=== PATIENT | female | born 1990 | race American Indian/Alaskan Native ===

== ENCOUNTER 2019-08-31 11:37 | Inpatient (IN) | payer MEDICAID ==
--- NOTE | 2019-08-31 12:22 | History and Physical Report ---
History of Present Illness Date of examination: 08/31/19 Chief complaint: Labor History of present illness: Pt is a 29yo BF EDC 09/01/19; EGA 39 6/7 weeks presents to L&D complaining of contractions. She has a previous C Section and is scheduled for a Repeat C Section with BTL tomorrow, but we will proceed today. She received care at [facility] since 13 weeks and co-managed by [facility] for uterine fibroids and sickle cell trait. records are available and GBS is Negative. Past History Past Medical History: no pertinent history Past Surgical History: section Social history: no significant social history, - Obstetrical History Expected Date of Delivery: 09/01/19 Actual Gestation: 39 Week(s) 6 Day(s) : 3 Medications and Allergies Allergies Allergy/AdvReac Type Severity Reaction Status Date / Time No Known Allergies Allergy Verified 06/08/15 10:23 Home Medications Medication Instructions Recorded Confirmed Last Taken Type Multivitamin Tablet 1 tab PO DAILY 08/31/19 08/31/19 08/30/19 10:00 History Review of Systems All systems: negative - Vital Signs Vital signs: Vital Signs Temp Pulse Resp BP 98.2 F 90 16 111/75 08/31/19 11:55 08/31/19 11:55 08/31/19 11:55 08/31/19 11:55 Temp Pulse Resp BP Pulse Ox 98.2 F 90 16 111/75 08/31/19 11:55 08/31/19 11:57 08/31/19 11:55 08/31/19 11:57 - Physical Exam Breasts: Positive: deferred Cardiovascular: Regular rate Lungs: Positive: Clear to auscultation Abdomen: Positive: normal appearance Genitourinary (Female): Positive: normal external genitalia Vagina: Positive: normal moisture Uterus: Positive: enlarged Extremities: Positive: normal - Obstetrical FHR: category 1 Uterine Contraction Monitor Mode: External Uterine Contraction Pattern: Regular Uterine Tone Measurement Phase: Contraction Uterine Contraction Intensity: Mild Results Result Diagrams: 08/31/19 12:00 All other labs normal. Assessment and Plan - Patient Problems (1) 39 weeks gestation of Onset Date: 08/31/19 Current Visit: Yes Status: Acute Plan to address problem: A: IUP @ 39 6/7 weeks in early labor Previous C Section Desire sterilization P: Admit to L&D for a Repeat C Section with BTL (2) Previous section complicating Onset Date: 08/31/19 Current Visit: Yes Status: Acute (3) Sterilization Onset Date: 08/31/19 Current Visit: Yes Status: Acute
[2019-08-31 12:31] LABS: Basophils % (Auto) 0.5 % (0.0-1.8); Eosinophils % (Auto) 0.2 % (0.0-4.3); Hematocrit 36.2 % (30.3-42.9); Lymphocytes # (Auto) 1.8 K/mm3 (1.2-5.4); Lymphocytes % (Auto) 19.8 % (13.4-35.0); Mean Corpuscular HGB Conc 33 % (30-34); Mean Corpuscular Volume 76 fl (79-97); Monocytes # (Auto) 0.8 K/mm3 (0.0-0.8); Monocytes % (Auto) 8.8 % (0.0-7.3); Platelet Count 273 K/mm3 (140-440); Red Blood Count 4.77 M/mm3 (3.65-5.03)
--- NOTE | 2019-08-31 12:42 | Anesthesia Consultation ---
Anesthesia Consult and Med Hx Date of service: 08/31/19 - Airway Anesthetic Teeth Evaluation: Good ROM Head & Neck: Adequate Mental/Hyoid Distance: Adequate Mallampati Class: Class II Intubation Access Assessment: Probably Good - Pulmonary Exam CTA: Yes - Cardiac Exam Cardiac Exam: RRR - Pre-Operative Health Status ASA Pre-Surgery Classification: ASA2 Proposed Anesthetic Plan: Spinal - Pre-Anesthesia Comment Pre-Anesthesia Comments: PSH: UHR - Pulmonary Hx Smoking: No Hx Asthma: No Hx Respiratory Symptoms: No SOB: No COPD: No Home Oxygen Therapy: No Hx Pneumonia: No Hx Sleep Apnea: No - Cardiovascular System Hx Hypertension: No Hx Coronary Artery Disease: No Hx Heart Attack/AMI: No Hx Angina: No Hx Percutaneous Transluminal Coronary Angioplasty (PTCA): No Hx Cardia Arrhythmia: No Hx Pacemaker: No Hx Internal Defibrillator: No Hx Valvular Heart Disease: No Hx Heart Murmur: No Hx Peripheral Vascular Disease: No - Central Nervous System Hx Neuromuscular Disorder: No Hx Seizures: No CVA: No Hx Back Pain: No Hx Psychiatric Problems: No - Gastrointestinal Hx Ulcer: No Hx Gastroesophageal Reflux Disease: No - Endocrine Hx Renal Disease: No Hx End Stage Renal Disease: No Hx Cirrhosis: No Hx Liver Disease: No Hx Insulin Dependent Diabetes: No Hx Non-Insulin Dependent Diabetes: No Hx Thyroid Disease: No Hx Hypothyroidism: No Hx Hyperthyroidism: No - Hematic Hx Anemia: No Hx Sickle Cell Disease: Yes (trait) - Other Systems Hx Alcohol Use: No Hx Substance Use: No Hx Cancer: No Hx Obesity: Yes (BMI 46)
[2019-08-31] MEDS ORDERED: HYDROmorphone 1 MG/1 ML INJ IV PRN (12:43)
[2019-08-31] MEDS ORDERED: ONDANSETRON 4 MG/2 ML INJ IV PRN (12:43)
--- NOTE | 2019-08-31 12:43 | Anesthesia Day of Surgery ---
Anesthesia Day of Surgery - Day of Surgery Patient Examined: Yes Patient H&P Reviewed: Yes Patient is NPO: Yes Beta Blockers: No Cardiac Clearance: No Pulmonary Clearance: No Zheng's Test: N/A
[2019-08-31 12:49] LABS: Red Cell Distribution Width 20.9 % (13.2-15.2)
[2019-08-31] MEDS ORDERED: DEXMEDETOMIDINE 200 MCG/2 ML VIAL IV ONE (12:51)
[2019-08-31] MEDS ORDERED: OXYTOCIN 20 UNIT/1000ML DRIP 20 UNITS/1,000 ML BAG IV SCH ×2 (13:00→17:00)
[2019-08-31] MEDS ORDERED: FAMOTIDINE 20 MG/2 ML INJ IV ONE (13:00)
[2019-08-31] MEDS ORDERED: ceFAZolin/Water 2 GM/20 ML 2 GM/20 ML SYRINGE IV NR (13:00)
[2019-08-31] MEDS ORDERED: METOCLOPRAMIDE 10 MG/2 ML INJ IV ONE (13:00)
[2019-08-31] MEDS ORDERED: LACTATED RINGERS 1,000 ML IV SCH (13:00)
[2019-08-31] MEDS ORDERED: BICITRA ORAL LIQD 30ML PO ONE (13:00)
[2019-08-31] MEDS ORDERED: WATER FOR IRRIG STERILE 1,500 ML BOTTLE IR ONE (14:50)
[2019-08-31] MEDS ORDERED: SODIUM CHLORIDE 0.9% IRR 1,500 ML BOTTLE IR ONE (14:50)
[2019-08-31] MEDS ORDERED: PHENYLEPHRINE 10 MG/1 ML INJ SDV ONE (15:14)
[2019-08-31] MEDS ORDERED: OXYTOCIN 10 UNIT/1 ML INJ ONE (15:22)
--- NOTE | 2019-08-31 16:01 | Operative Report ---
Operative Report Operative Report: Date of procedure: 08/31/2019 Pre-operative diagnosis: 1. Intrauterine at 39 6/7 weeks 2. Previ ous C Section 3. Desires permanent sterilization Post-operative diagnosis: same with large uterine fibroids and extensive lower uterine segment adhesions Procedure name(s): 1. Repeat low transverse section 2. Bilateral Tubal Ligation 3. Lysis of extensive pelvic adhesions Surgeon: Jack Weathers MD Bead Inspector: None Anesthesia: Spinal anesthesia by Neli Curry CRNA EBL: 800 mL's Findings: A 3327 gm female Apgars 8 at 1 minute 9 at 5 minutes. Meconium amniotic fluid. Nuchal cord x 2. Uterus with large fibroids and extensive lower uterine segment adhesions. Normal tubes and ovaries bilaterally. Procedure: After the patient was prepped and draped in usual sterile fashion, and after satisfactory level of spinal anesthesia was obtained, the skin knife was used to make a transverse skin incision through the previous skin scar. The incision was incised down to layer of the fascia, which was nicked in the midline and extended laterally using the Bovie cautery. The rectus muscles were dissected off the rectus fascia both superiorly and inferiorly. The rectus bellies in the midline, and the peritoneum was entered under direct visualization. The peritoneal incision was extended superiorly and inferiorly. Extensive lower uterine segment adhesions were taken down using both sharp and blunt dissections. A bladder flap was created and the bladder blade was then placed. The uterus was scored in a curvilinear linear fashion, entered in the midline revealing 2+ meconium amniotic fluid. The 's head was delivered onto the surgical field with the aid of a vacuum, nuchal cord x2 reduced, and the oropharynx and nasopharynx were bulb suctioned. The rest of the infant's body was delivered, cord was doubly clamped and cut and the infant was handed to the awaiting respiratory team. The placenta was manually removed from the uterus, and the uterus removed from its normal anatomical position. After gentle uterine lavage, the incision was inspected and found to be without extensions. It was then closed in 2 layers using 0 Vicryl suture in a running interlocking fashion, the second layer imbricating the first. After good hem ostasis was achieved, copious amounts or irrigation was performed, and the gutters were suctioned free of blood and blood clots. Attention was then turned to the tubal ligation. First the right fallopian tube was grasped using the [place], and after identifying the fimbriated end of the tube, the Filsche clip was applied to the proximal portion of the right tube. The same procedure was performed on the left fallopian tube. The left fallopian tube was grasped using the [place], and after identifying the fimbriated end of the tube, the Filsche clip was applied to the proximal portion of the left tube. The uterus was then returned to its normal anatomical position, and Hemoblast was sprayed across the uterine incision. Next, the peritoneum was re-approximated using 3-0 Vicryl suture in a running interlocking fashion, and then the rectus muscles were loosely re-approximated using 3-0 Vicryl suture in a [id number] configuration. The fascia was then re-approximated using 0 Vicryl suture in running interlocking fashion. The subcutaneous layer was made hemostatic using Bovie cautery, and the skin edges re-approximated using 4-0 Vicryl suture in a sub-cuticular fashion. Patient tolerated the procedure well was transported to recovery in stable condition.
[2019-08-31] MEDS ORDERED: WITCH HAZEL/ GLYCERIN PAD TP PRN (16:07)
[2019-08-31] MEDS ORDERED: NALOXONE 0.4 MG/1 ML INJ IV PRN (16:07)
[2019-08-31] MEDS ORDERED: LANOLIN/ZINC/DIMETHICONE (LANSINOH) 7 GM TP PRN (16:07)
[2019-08-31] MEDS ORDERED: IBUPROFEN 800 MG TAB PO PRN (16:14)
[2019-08-31] MEDS ORDERED: MAGNESIUM HYDROXIDE (MOM) ORAL LIQD UDC PO PRN (16:14)
[2019-08-31] MEDS ORDERED: SIMETHICONE 80 MG CHEW TAB PO PRN (16:14)
[2019-08-31] MEDS ORDERED: SENNOSIDES 8.6 MG TAB PO PRN (16:14)
[2019-08-31] MEDS ORDERED: ACETAMINOPHEN 325 MG TAB PO PRN (16:14)
--- NOTE | 2019-08-31 16:18 | Post Anesthesia Evaluation ---
- Post Anesthesia Evaluation Patient Participated: Yes Airway Patent: Yes Stable Respiratory Function: Yes Nausea/Vomiting: No Temp > 96.8F: Yes Pain Manageable: Yes Adequeate Hydration: Yes Anesthesia Complications: No Block Receding Appropriately: Yes Patient on Ventilator: No
[2019-08-31] MEDS: HYDROmorphone 1 MG/1 ML INJ IV PRN ×2 (17:13→22:13)
[2019-08-31] MEDS: D5W/LACTATED RINGERS 1,000 ML IV SCH (18:10)
[2019-08-31] MEDS: KETOROLAC 30 MG/1 ML INJ IV PRN (18:34)
[2019-08-31] MEDS: ceFAZolin/NS 1 GM/50 ML 1 GM/50 ML BAG IV SCH (20:19)
[2019-09-01] MEDS: D5W/LACTATED RINGERS 1,000 ML IV SCH (01:52)
[2019-09-01] MEDS: KETOROLAC 30 MG/1 ML INJ IV PRN (02:58)
[2019-09-01] MEDS: ceFAZolin/NS 1 GM/50 ML 1 GM/50 ML BAG IV SCH (04:48)
[2019-09-01] MEDS: HYDROmorphone 1 MG/1 ML INJ IV PRN ×2 (04:50→17:56)
[2019-09-01 06:25] LABS: Hematocrit 31.4 % (30.3-42.9); Hemoglobin 10.4 gm/dl (10.1-14.3)
[2019-09-01] MEDS: HYDROcodone/ACETAMINOPHEN 5-325 MG TAB PO PRN ×2 (09:21→22:55)
--- NOTE | 2019-09-01 11:26 | Progress Note ---
Assessment and Plan - Patient Problems (1) Status post Onset Date: 09/01/19 Current Visit: No Status: Resolved Plan to address problem: A: S/P Repeat C Section with BTL - POD #1 Doing well Asymptomatic anemia - stable P: Continue RPOC Anticipate discharge in 24-48hrs (2) 39 weeks gestation of Onset Date: 08/31/19 Current Visit: Yes Status: Resolved (3) Previous section complicating Onset Date: 08/31/19 Current Visit: Yes Status: Chronic (4) Sterilization Onset Date: 08/31/19 Current Visit: Yes Status: Resolved (5) Acute blood loss anemia Onset Date: 09/01/19 Current Visit: Yes Status: Resolved Subjective - Subjective Date of service: 09/01/19 Principal diagnosis: s/p Repeat C Section with BTL - POD #1 Interval history: Pt is feeling well without complaints. Bleeding improved. Patient reports: appetite normal, voiding normally, pain well controlled, flatus, ambulating normally, no dizzy ambulation, no nauseated [place]: doing well, nursing well, bottle feeding Objective - Vital Signs Latest vital signs: Vital Signs Temp Pulse Resp BP BP Pulse Ox 09/01/19 09:21 20 09/01/19 07:12 99.0 F 85 20 122/80 99 09/01/19 05:21 99.1 F 81 20 111/69 97 09/01/19 01:01 98.1 F 86 20 114/71 99 08/31/19 21:10 98.1 F 78 20 105/65 99 08/31/19 18:34 20 08/31/19 17:50 97.5 F L 77 13 112/56 99 08/31/19 17:15 74 17 105/63 96 08/31/19 17:00 73 16 100/59 95 08/31/19 16:45 73 14 101/60 96 08/31/19 16:30 73 17 90/49 95 08/31/19 16:25 75 19 90/49 97 08/31/19 16:20 74 18 110/59 98 08/31/19 16:15 98.2 F 75 18 110/59 98 08/31/19 16:02 88 96/54 08/31/19 11:57 90 111/75 08/31/19 11:55 98.2 F 90 16 111/75 Intake and Output 08/31/19 09/01/19 09/01/19 22:59 06:59 14:59 Intake Total 2400 962.5 Output Total 300 100 Balance 2100 862.5 Intake: IV 2400 962.5 ANCEF/NS 1 GM/50 ML 1 gm 50 In 50 ml @ 100 mls/hr IV Q8H MARCELA Rx#:[id number] D5lr 1,000 ml @ 125 mls/ 962.5 hr IV DIRECT MARCELA Rx#: [id number] Output: Urine 300 100 Void 100 Other: Total, Output Amount 100 # Voids Indwelling Catheter 900 Void 1 Estimated Blood Loss 800 - Exam Breasts: Present: deferred Abdomen: Present: normal appearance, soft Uterus: Present: normal, firm, fundal height below umbilicus Extremities: Present: normal Incision: Present: normal, dry, intact, dressed - Labs Labs: Abnormal lab results 08/31/19 Range/Units 12:00 MCV 76 L (79-97) fl MCH 25 L (28-32) pg RDW 20.9 H (13.2-15.2) % George % (Auto) 8.8 H (0.0-7.3) % Seg Neutrophils % 70.7 H (40.0-70.0) % Laboratory Tests 08/31/19 08/31/19 09/01/19 12:00 12:00 05:33 WBC 9.0 RBC 4.77 Hgb 12.0 10.4 Hct 36.2 31.4 MCV 76 L MCH 25 L MCHC 33 RDW 20.9 H Plt Count 273 Lymph % (Auto) 19.8 George % (Auto) 8.8 H Eos % (Auto) 0.2 Baso % (Auto) 0.5 Lymph # 1.8 George # 0.8 Eos # 0.0 Baso # 0.0 Seg Neutrophils % 70.7 H Seg Neutrophils # 6.4 Blood Type B POSITIVE Antibody Screen Negative
[2019-09-01] MEDS: FERROUS SULFATE 325 MG TAB PO SCH (12:11)
[2019-09-01] MEDS: PRENATAL VIT27-FE FUMARATE-FOLIC ACID VIT TAB PO SCH (12:11)
[2019-09-01] MEDS: oxyCODONE /ACETAMINOPHEN 5-325MG TAB PO PRN (13:28)
[2019-09-01] MEDS ORDERED: MEASLES, MUMPS & RUBELLA 12,500 UNIT/0.5 ML VACCINE SUB-Q ONE (16:14)
[2019-09-01] MEDS ORDERED: TETANUS,DIPH,PERTUSS(ACELL) VACCINE 0.5 ML SYRINGE IM ONE (16:14)
--- NOTE | 2019-09-02 12:06 | Progress Note ---
Assessment and Plan - Patient Problems (1) Status post Onset Date: 09/01/19 Current Visit: No Status: Resolved Plan to address problem: A: S/P Repeat C Section with BTL - POD #2 Doing well Asymptomatic anemia - stable P: May go home today. (2) 39 weeks gestation of Onset Date: 08/31/19 Current Visit: Yes Status: Resolved (3) Previous section complicating Onset Date: 08/31/19 Current Visit: Yes Status: Chronic (4) Sterilization Onset Date: 08/31/19 Current Visit: Yes Status: Resolved (5) Acute blood loss anemia Onset Date: 09/01/19 Current Visit: Yes Status: Resolved Subjective - Subjective Date of service: 09/02/19 Principal diagnosis: s/p Repeat C Section with BTL - POD #2 Interval history: Pt is feeling well without complaints. She is tolerating a reg diet without nausea or vomiting, ambulating and voiding without difficulty. Wants to go home today. Patient reports: appetite normal, voiding normally, pain well controlled, flatus, ambulating normally, no dizzy ambulation, no appetite poor, no nauseated [place]: doing well, nursing well Objective - Vital Signs Latest vital signs: Vital Signs Temp Pulse Resp BP BP Pulse Ox 09/02/19 08:48 98.0 F 89 18 126/80 97 09/02/19 00:00 98.2 F 86 18 118/73 09/01/19 17:56 20 09/01/19 16:13 98.7 F 89 20 115/81 97 09/01/19 13:28 20 Intake and Output 09/01/19 09/02/19 09/02/19 22:59 06:59 14:59 Intake Total 240 240 240 Balance 240 240 240 Intake: Oral 240 240 240 Other: Total, Intake Amount 240 240 240 # Voids Void 1 1 1 - Exam Breasts: Present: deferred Abdomen: Present: normal appearance, soft Uterus: Present: normal, firm, fundal height below umbilicus Extremities: Present: normal Incision: Present: normal, dry, intact
--- NOTE | 2019-09-02 12:13 | Discharge Summary ---
Providers - Providers Date of Admission: 08/31/19 12:35 Date of discharge: 09/02/19 Attending physician: NANCI REID Primary care physician: NANCI REID Hospitalization Reason for admission: section, IUP at term, other (Desires permanent sterilization) Delivery: Procedure: section, bilateral tubal ligation, repeat low transverse Episiotomy: none Laceration: none Incision: normal, dry, intact Other procedures: tubal ligation complications: none Discharge diagnosis: IUP at term delivered [place] baby: female Hospital course: Pt is a 29yo BF EDC 09/01/19; EGA 39 6/7 weeks who presented to L&D complaining of contractions. She has a previous C Section and was scheduled for a Repeat C Section with BTL tomorrow, but we will proceed today. She received care at [facility] since 13 weeks and co-managed by [facility] for uterine fibroids and sickle cell trait. She underwent an uncomplicated Repeat C Section with BTL and tolerated the procedure well. By POD #2 she was tolerating a reg diet without nausea or vomiting, ambulating and voiding without difficulty. She was therefore discharged to home on POD #2 in stable condition. Condition at discharge: Good Disposition: DC-01 TO HOME OR SELFCARE - Discharge Diagnoses (1) Status post Status: Resolved (2) 39 weeks gestation of Status: Resolved (3) Previous section complicating Status: Chronic (4) Sterilization Status: Resolved (5) Acute blood loss anemia Status: Resolved Plan - Discharge Medications Prescriptions: Ferrous Sulfate [Feosol 325 MG tab] 325 mg PO BID #60 tablet Ibuprofen [Motrin 800 MG tab] 800 mg PO Q6H PRN #30 tablet PRN Reason: Pain, Mild (1-3) oxyCODONE /ACETAMINOPHEN [Percocet 5/325 mg] 1 tab PO Q6H PRN #30 tablet PRN Reason: Pain, Moderate (4-6) Vit-Fe Fumar-FA [ Vitamin] 1 each PO QDAY #30 tablet - Provider Discharge Summary Activity: routine, no sex for 6 weeks, no heavy lifting 4 weeks, no strenuous exercise Diet: routine Instructions: routine Additional instructions: [] Smoking cessation referral if applicable(refer to patient education folder for contact #) [] Refer to [facility] Booklet Call your doctor immediately for: * Fever > 100.5 * Heavy vaginal bleeding ( >1 pad per hour) * Severe persistent headache * Shortness of breath * Reddened, hot, painful area to leg or breast * Drainage or odor from incision. * Keep incision clean and dry at all times and follow doctor's instructions regarding bathing/showering - Follow up plan Follow up: NANCI REID MD [Primary Care Provider] - 14 Days
[2019-09-02] MEDS: oxyCODONE /ACETAMINOPHEN 5-325MG TAB PO PRN (13:44)
[2019-09-02] MEDS: PRENATAL VIT27-FE FUMARATE-FOLIC ACID VIT TAB PO SCH (16:16)
[2019-09-02] MEDS: FERROUS SULFATE 325 MG TAB PO SCH (16:16)
[2019-09-02 17:15] VITALS: BP 117/79
== END 2019-09-02 17:35 | disposition home or self-care (01) | DRG 765 ==
LOC: TRG 11:37 → APU 12:35 → OB 18:00
PROVIDERS: ADMIT Obstetrics & Gynecology; ATTEND Obstetrics & Gynecology
PROC: 10D00Z1 Extraction of Products of Conception, Low, Open Approach (ICD-10-PCS; principal; 2019-08-31)
PROC: 0UN90ZZ Release Uterus, Open Approach (ICD-10-PCS; 2019-08-31)
PROC: 0UL70CZ Occlusion of Bilateral Fallopian Tubes with Extraluminal Device, Open Approach (ICD-10-PCS; 2019-08-31)
PROC: 3E0234Z Introduction of Serum, Toxoid and Vaccine into Muscle, Percutaneous Approach (ICD-10-PCS; 2019-09-01)
PROC: 3E0134Z Introduction of Serum, Toxoid and Vaccine into Subcutaneous Tissue, Percutaneous Approach (ICD-10-PCS; 2019-09-01)
DX: O34.211 Maternal care for low transverse scar from previous cesarean delivery (principal); D62 Acute posthemorrhagic anemia; O99.02 Anemia complicating childbirth; O99.214 Obesity complicating childbirth; O34.13 Maternal care for benign tumor of corpus uteri, third trimester; D25.9 Leiomyoma of uterus, unspecified; O99.89 Other specified diseases and conditions complicating pregnancy, childbirth and the puerperium; N73.6 Female pelvic peritoneal adhesions (postinfective); Z3A.39 39 weeks gestation of pregnancy; Z37.0 Single live birth; Z30.2 Encounter for sterilization; Z23 Encounter for immunization
CPT/HCPCS: 36415; 85014; 85018; 85025; 86850; 86900; 86901; G0378; J0690; J1170; J1885; J2370; J2590; J2765; J3490; J7120; J7121